=== PATIENT | male | born 1965 | race Caucasian/White ===

== ENCOUNTER 2018-03-12 10:16 | Emergency (ER) | payer BC ==
--- NOTE | 2018-03-12 11:03 | ED Physician Chart ---
ED Chief Complaint/HPI - Patient Information Date Seen:: 03/12/18 Time Seen:: 10:45 Chief Complaint:: rash History of Present Illness:: Patient developed a very pruritic diffuse pruritic rash last night. He first noted itching of his palms. Hands are painful. No throat swelling or difficulty breathing. Allergies:: Allergies Allergy/AdvReac Type Severity Reaction Status Date / Time No Known Allergies Allergy Verified 03/12/18 10:27 Vitals:: Vital Signs - 8 hr 03/12/18 03/12/18 10:27 10:54 Temp 98.7 F 98.7 F HR 89 89 RR 18 16 BP 143/71 143/71 O2 Sat % 97 97 Historian:: Patient Review:: Nurse's Note Reviewed ED Review of Systems - Review of Systems General/Constitutional: No fever, No chills Skin: Skin lesions, Rash Head: No headache Eyes: No loss of vision ENT: No earache Neck: No neck pain, No swelling Cardio Vascular: No chest pain, No palpitations Pulmonary: No SOB GI: No nausea, No vomiting, No diarrhea G/U: No dysuria Musculoskeletal: Other (hand pain) Endocrine: No polyuria Psychiatric: No prior psych history Hematopoietic: No bruising Allergic/Immuno: Urticaria Neurological: No syncope ED Past Medical History - Past Medical History Past Medical History: CAD Family History: Heart disease, Other (CVA; both parents have a cardiac patient maker) Social History: Smoker, Non Smoker, Other (patient smokes one pack of cigarettes a day) Medication: Reviewed Family Medical History - Family Member Father Hx Family Coronary Artery Disease: Yes ED Physical Exam - Physical Examination General/Constitutional: Awake, Well-developed, well-nourished, Alert, No distress, GCS 15, Non-toxic appearing, Ambulatory Head: Atraumatic Eyes: Lids, conjuctiva normal, PERRL, EOMI Other Skin comments:: About 2 and half centimeter raised red round urticarial lesion posterior left thigh; urticarial lesion volar right forearm; about 5 cm area of redness right groin; diffuse fine maculopapular rash ENMT: External ears, nose nl, Nasal exam nl, Lips, teeth, gums nl Neck: Nontender, Full ROM w/o pain, No JVD, No nuchal rigidity, No bruit, No mass, No stridor Respiratory: Nl effort/Exclusion, Clear to Auscultation, No Wheeze/Rhonchi/Rales Cardio Vascular: RRR, No murmur, gallop, rubs, NL S1 S2 GI: No tenderness/rebounding/guarding, No organomegaly, No hernia, Normal BS's, Nondistended, No mass/bruits, No McBurney tenderness : No CVA tenderness Extremities: No tenderness or effusion, Full ROM, normal strength in all extremities, No edema, Normal digits & nails Neuro/Psych: Alert/oriented, DTR's symmetric, Normal sensory exam, Normal motor strength, Judgement/insight normal, Mood normal, Normal gait, No focal deficits Misc: Normal back, No paraspinal tenderness ED Assessment - Assessment General Assessment: With the patient's history of coronary artery disease epinephrine subcutaneously which is the only thing that would make the urticaria go away will not be given since I am afraid it might cause a serious arrhythmia. Also if epinephrine were given the urticaria could return in 1-2 hours as whatever the allergen is can last in the body than the. effects of the epinephrine ED Septic Shock - . Is Septic Shock (SBP<90, OR Lactate>4 mmol\L) present?: No - <6hrs of presentation: Vital Signs: Vital Signs - 8 hr 03/12/18 03/12/18 10:27 10:54 Temp 98.7 F 98.7 F HR 89 89 RR 18 16 BP 143/71 143/71 O2 Sat % 97 97 ED Reassessment (Disposition) - Reassessment Reassessment Condition:: Unchanged - Diagnosis Diagnosis:: Urticaria; maculopapular rash; allergic reaction - Aftercare/Follow up Instructions Aftercare/Follow-Up Instructions:: Refer to Discharge Instructions Medication Prescribed:: Atarax 25 mg #20 to take 1 4 times a day. Patient informed that Atarax may cause drowsiness. - Patient Disposition Discharge/Transfer:: Home Condition at Disposition:: Stable
== END 2018-03-12 11:16 | disposition home or self-care (01) ==
LOC: ER 10:16
DX: T78.40XA Allergy, unspecified, initial encounter (principal); L50.0 Allergic urticaria; I25.10 Atherosclerotic heart disease of native coronary artery without angina pectoris; F17.210 Nicotine dependence, cigarettes, uncomplicated; X58.XXXA Exposure to other specified factors, initial encounter
CPT/HCPCS: Z7502

== ENCOUNTER 2018-04-01 15:24 | Emergency (ER) | payer BC ==
--- NOTE | 2018-04-02 08:23 | Diagnostic Imaging Report ---
Right hand (3 views) HISTORY: Pain, trauma No acute bony abnormalities. No fractures. Joint spaces appear normal. IMPRESSION: No acute abnormalities. In the presence of recent trauma and persistent symptoms, a repeat radiograph in 5-7 days may be helpful for detection of a subtle or occult fracture.
--- NOTE | 2018-04-09 10:59 | ER Physician Documentation ---
DATE OF SERVICE: 04/01/2018 HISTORY OF PRESENT ILLNESS: This patient presents to the Emergency Room because of finger pain that he has had for 3 days. The patient admits to an injury that occurred about 3 days prior to admission just developing the finger pain. The patient denies head injuries, loss of consciousness, headaches, neck pain, chest pain, shortness of breath, abdominal pain, weakness and dizziness, paresthesias, vertigo or gait changes. PAST MEDICAL HISTORY: Unremarkable. ALLERGIES: The patient has no known allergies. FAMILY HISTORY: Not known. REVIEW OF SYSTEMS: Otherwise, noncontributory. PHYSICAL EXAMINATION: GENERAL: Found the patient to be in no acute distress, alert and oriented x 3. VITAL SIGNS: Afebrile. Vital signs stable. HEENT: Unremarkable. NECK: Supple. No meningeal signs. No cervical tenderness. CARDIOVASCULAR: Regular rate and rhythm. LUNGS: Clear. ABDOMEN: Soft, nontender, normoactive bowel sounds. No pulsatile masses. EXTREMITIES: No edema, clubbing or cyanosis. There is right middle finger tenderness and swelling without loss and range of motion. No ligament instability. Good motor, tone and sensory function. No septic joints. Good motor, tone and sensory function. Good neurovascular function. No foreign bodies and no cellulitis. X-rays showed a possible questionable hairline fracture, otherwise unremarkable. PLAN OF ACTION: Splint was applied to the finger, Adam wrap to the hand and a sling was applied to the arm. The patient was comfortable upon discharge and thus, the patient was discharged with aftercare instructions given for all diagnosis. The patient is to return to the Emergency Room as needed. If existing symptoms should reoccur and/or get worse and/or any other new symptoms should occur, referred to a hand surgeon specialist as soon as possible or an community support specialist as soon as possible. Otherwise, followup care with primary care physician in 1 day or as needed. The patient is to return to the Emergency Room as needed or if concern. DIAGNOSES: Right finger fracture, right finger sprains and strains. JOB# [id number]
== END 2018-04-01 17:11 | disposition home or self-care (01) ==
LOC: ER 15:24
DX: S62.501A Fracture of unspecified phalanx of right thumb, initial encounter for closed fracture (principal); X58.XXXA Exposure to other specified factors, initial encounter; Y93.89 Activity, other specified; Y92.89 Other specified places as the place of occurrence of the external cause; Y99.8 Other external cause status
CPT/HCPCS: 73130-TC-RT; Z7502